=== PATIENT | female | born 1990 ===

== ENCOUNTER 2017-06-15 11:32 | Inpatient (IN) | payer OTHER ==
[~2017-06-15] VITALS: Ht 162.6 cm; Wt 74.1 kg
[2017-07-26] VITALS (22 sets, daily range): BP systolic 94–118; BP diastolic 53–78; PULSE 74–90; TEMP 97–98.4
[2017-07-26 06:31] LABS: BASO # 0.1 (0.0-0.2); BASO % 0.5 % (0.0-2.0); EOS # 0.2 (0.0-0.7); GRAN # 7.1 (1.4-6.5); GRAN % 67.4 % (42.2-75.2); LYMPH # 2.2 (1.2-3.4); LYMPH % 20.7 % (20.0-51.0); MEAN CELL VOLUME 87 fl (80.0-100.0); MEAN CORPUSCULAR HGB CONC 33 g/dl (33.0-37.0); MEAN PLATELET VOLUME 12.3 fl (7.4-10.4); MONO # 0.9 (0.1-0.6); MONO % 8.2 % (1.7-9.3); PLATELET COUNT 208 K/mm3 (130-400); RED BLOOD COUNT 3.93 M/mm3 (4.10-5.30); REDCELL DISTRIBUTION WIDTH-CV 13.4 % (11.5-14.5)
[2017-07-26 06:33] LABS: HEMATOCRIT 34.1 % (37.0-47.0); HEMOGLOBIN 11.4 g/dl (12.5-16.0); MEAN CORPUSCULAR HEMOGLOBIN 29 pg (27.0-31.0)
[2017-07-27 00:10] VITALS: BP 114/69; PULSE 86; TEMP 98.4
[2017-07-27 06:55] VITALS: BP 102/67; PULSE 87; TEMP 97.3
[2017-07-27 07:03] LABS: HEMATOCRIT 31.6 % (37.0-47.0); HEMOGLOBIN 10.4 g/dl (12.5-16.0)
[2017-07-27 17:00] VITALS: BP 105/67; PULSE 87; TEMP 98.3
[2017-07-27 21:10] VITALS: BP 110/62; PULSE 91; TEMP 97.9
[2017-07-28 09:48] VITALS: BP 117/75; PULSE 92; TEMP 97.9
[2017-07-28 16:25] VITALS: BP 110/67; PULSE 91; TEMP 98.2
[2017-07-28 20:50] VITALS: BP 117/74; PULSE 89; TEMP 97.7
[2017-07-29 08:46] VITALS: BP 115/77; PULSE 92; TEMP 98.1
[2017-07-29] MEDS ORDERED: IBU600 MG PO (11:30)
[2017-07-29] MEDS ORDERED: PERCOCET 325 MG1 TA2 PO (11:30)
== END 2017-07-29 12:20 | disposition home or self-care (01) | DRG 766 ==
LOC: OB 07-26 05:40 → LDR 07-26 08:35 → OB 07-26 13:04 → EDSTATUS 07-31 06:36 → LDR 07-31 06:37 → LDRO 07-31 11:31
PROVIDERS: Obstetrics & Gynecology
PROC: 10D00Z1 Extraction of Products of Conception, Low, Open Approach (ICD-10-PCS; principal; 2017-07-26)
DX: O34.211 Maternal care for low transverse scar from previous cesarean delivery (principal); N85.8 Other specified noninflammatory disorders of uterus; Z3A.39 39 weeks gestation of pregnancy; Z37.0 Single live birth
CPT/HCPCS: J0690; J1885; J2270; J2370; J2405; J2590; J7120